=== PATIENT | female | born 1950 ===

== ENCOUNTER 2023-02-01 08:15 | Inpatient (IN) | payer OTHER ==
[~2023-02-01] VITALS: Ht 157.5 cm; Wt 57.2 kg
[2023-02-01] MEDS ORDERED: METFOR PO (12:41)
[2023-02-01] MEDS ORDERED: LANTUS (12:41)
[2023-02-01] MEDS ORDERED: GLIPIZIDE XL5 MG PO (12:42)
[2023-02-01] MEDS ORDERED: ZESTRIL40 M1 PO (12:42)
[2023-02-01] MEDS ORDERED: SIMVAST PO (12:43)
[2023-02-01] MEDS ORDERED: LEVOTHY PO (12:43)
== END 2023-02-05 11:40 | disposition home or self-care (01) | DRG 741 ==
LOC: ADM 08:15 → EDSTATUS 08:15 → O/R 02-03 06:28 → OB/GYN 02-03 06:28 → SURG 02-03 08:15 → OB/GYN 02-03 14:17 → SURG 02-03 15:15 → OB/GYN 02-05 11:40
PROVIDERS: ADMIT Obstetrics & Gynecology Gynecologic Oncology; ATTEND Obstetrics & Gynecology Gynecologic Oncology
PROC: 0UT70ZZ Resection of Bilateral Fallopian Tubes, Open Approach (ICD-10-PCS; 2023-02-03)
PROC: 0UT20ZZ Resection of Bilateral Ovaries, Open Approach (ICD-10-PCS; 2023-02-03)
PROC: 07BC0ZZ Excision of Pelvis Lymphatic, Open Approach (ICD-10-PCS; 2023-02-03)
PROC: 0UT90ZZ Resection of Uterus, Open Approach (ICD-10-PCS; principal; 2023-02-03 15:15)
DX: C54.1 Malignant neoplasm of endometrium (principal); Z20.822 Contact with and (suspected) exposure to COVID-19